=== PATIENT | female | born 1965 ===

== ENCOUNTER 2021-02-27 10:30 | Inpatient (IN) | payer OTHER ==
[~2021-02-27] VITALS: Ht 165.1 cm; Wt 89.4 kg
[2021-02-27] MEDS ORDERED: TOPROL XL25 M1 PO (15:16)
[2021-02-27] MEDS ORDERED: FORTAMET500 MG PO (15:16)
[2021-02-27] MEDS ORDERED: SYNTHROID175 MCG PO (15:17)
[2021-03-09] MEDS ORDERED: ULTRACET PO (11:13)
== END 2021-03-09 13:16 | disposition home or self-care (01) | DRG 331 ==
LOC: SURH 03-06 07:45 → O/R 03-06 07:45 → SURH 03-06 08:30
PROVIDERS: ADMIT Surgery; ATTEND Surgery
PROC: 3E0F7SF Introduction of Other Gas into Respiratory Tract, Via Natural or Artificial Opening (ICD-10-PCS; 2021-03-06)
PROC: 0DTN0ZZ Resection of Sigmoid Colon, Open Approach (ICD-10-PCS; principal; 2021-03-06 08:30)
DX: K57.20 Diverticulitis of large intestine with perforation and abscess without bleeding (principal); I10 Essential (primary) hypertension; E11.9 Type 2 diabetes mellitus without complications; E66.01 Morbid (severe) obesity due to excess calories; E03.8 Other specified hypothyroidism